=== PATIENT | female | born 2000 | race Two or more races ===

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

== ENCOUNTER 2023-06-28 08:35 | Inpatient (IN) | payer OTHER ==
[~2023-06-28] VITALS: Ht 157.5 cm; Wt 81.6 kg
[2023-06-28] MEDS ORDERED: IRON236 MG PO (09:33)
[2023-06-28] MEDS ORDERED: PRENATAL TABLE1 EAC4 PO (09:33)
== END 2023-06-30 13:46 | disposition home or self-care (01) | DRG 807 ==
LOC: LDR 08:35 → OB/GYN 08:35
PROVIDERS: ADMIT Obstetrics & Gynecology; ATTEND Obstetrics & Gynecology
PROC: 10E0XZZ Delivery of Products of Conception, External Approach (ICD-10-PCS; principal; 2023-06-28)
PROC: 0UQMXZZ Repair Vulva, External Approach (ICD-10-PCS; 2023-06-28)
PROC: 4A1HXCZ Monitoring of Products of Conception, Cardiac Rate, External Approach (ICD-10-PCS; 2023-06-28)
DX: O71.82 Other specified trauma to perineum and vulva (principal); Z37.0 Single live birth; Z3A.39 39 weeks gestation of pregnancy; Z20.822 Contact with and (suspected) exposure to COVID-19

== ENCOUNTER 2025-03-01 20:17 | Emergency (ER) | payer OTHER ==
[~2025-03-01] VITALS: Ht 157.5 cm; Wt 63.5 kg
[~2025-03-01 20:17] MED LIST: IRON236 MG PO; PRENATAL TABLE1 EAC4 PO
[2025-03-01 23:30] LABS: HEMATOCRIT 39.1 % (36.0-45.00); HEMOGLOBIN 13.2 g/dL (12.0-15.00); MEAN CELL VOLUME 88.8 fL (80.00-100.00); MEAN CORPUSCULAR HEMOGLOBIN 29.9 pg (27.00-32.0); MEAN CORPUSCULAR HGB CONC 33.7 g/dl (32.0-36.0); PLATELET COUNT 198 K/uL (150-450); RED CELL DISTRIBUTION WIDTH 12.5 % (11.5-14.5)
[2025-03-02 00:52] LABS: URINE APPEARANCE Cloudy; URINE BILIRRUBIN Negative (NEGATIVE); URINE BLOOD Negative; URINE COLOR Yellow; URINE GLUCOSE Negative (NEGATIVE); URINE KETONE Negative (NEGATIVE); URINE LEUKOCYTE Negative; URINE NITRATE Negative; URINE PROTEIN Negative (NEGATIVE); URINE UROBILINOGEN 0.2 E.U./dl
[2025-03-02 00:56] LABS: URINE BACTERIA 478.5 uL (0.0-1933); URINE EPITHELIAL CELLS 38.3 uL (0.0-38.8); URINE WBC 10.2 uL (0.0-23.2)
[2025-03-02 01:12] LABS: URINE CAST 0.14 uL (0.0-1.40); URINE RBC 0.8 uL (0.0-20.8)
== END 2025-03-02 00:22 | disposition home or self-care (01) ==
LOC: ER 20:18
PROVIDERS: General Practice
DX: O20.8 Other hemorrhage in early pregnancy (principal); Z3A.08 8 weeks gestation of pregnancy; N93.9 Abnormal uterine and vaginal bleeding, unspecified